=== PATIENT | female | born 1950 | race Caucasian/White ===

== ENCOUNTER 2021-06-11 13:58 | Emergency (ER) | payer MEDICARE, OTHER ==
[2021-06-11 14:25] LABS: BASOPHIL 1.1 % (0-2); EOSINOPHIL 4.3 % (0-7); HGB 11.9 g/dl (12.5-16.0); LYMPHOCYTE 25.1 % (15-48); MCH 28.4 pg (25.0-31.0); MCHC 33.1 g/dL (32.0-36.0); MCV 85.9 fL (78.0-100.0); MONOCYTE 6.1 % (0-12); MPV 9.5 fL (6.0-9.5); NRBC 0; PLT 328 K/uL (150-400); RBC 4.19 M/uL (4.20-5.40); RDW 13.9 % (11.5-14.0); WBC 8.3 K/uL (4.0-10.5)
[2021-06-11 14:35] LABS: INR 1.02 (0.9-1.2); PROTHROMBIN TIME 12.8 SECONDS (11.8-13.4); PTT 32.4 SECONDS (24.4-34.7)
[2021-06-11 14:43] LABS: ALBUMIN 3.3 g/dL (3.4-5.0); BILIRUBIN - TOTAL 0.2 mg/dL (0.2-1.0); BUN/CREAT RATIO (CALC) 18.4 RATIO; CREATININE 0.87 mg/dL (0.51-0.95); POTASSIUM 3.3 mmol/L (3.5-5.1); TOTAL PROTEIN 6.3 g/dL (6.4-8.2)
== END 2021-06-11 16:16 | disposition home or self-care (01) ==
LOC: FER 13:58
PROVIDERS: Internal Medicine
DX: R07.89 Other chest pain (principal); E87.6 Hypokalemia; D64.9 Anemia, unspecified; I10 Essential (primary) hypertension; F17.210 Nicotine dependence, cigarettes, uncomplicated
CPT/HCPCS: 36415; 71045; 80053; 84484; 85025; 85610; 85730; 93005

== ENCOUNTER 2022-03-20 21:59 | Emergency (ER) | payer MEDICARE ==
[2022-03-21] MEDS ORDERED: AMOX TR-K CLV1 EAC4 PO (00:22)
== END 2022-03-21 00:56 | disposition home or self-care (01) ==
LOC: FER 21:59
DX: S51.812A Laceration without foreign body of left forearm, initial encounter (principal); I10 Essential (primary) hypertension; F17.200 Nicotine dependence, unspecified, uncomplicated; Z23 Encounter for immunization; Z91.040 Latex allergy status; W54.0XXA Bitten by dog, initial encounter; Y92.009 Unspecified place in unspecified non-institutional (private) residence as the place of occurrence of the external cause; Z28.310 Unvaccinated for COVID-19
CPT/HCPCS: 73090; 90471; 90715